=== PATIENT | male | born 1960 | race Caucasian/White ===

== ENCOUNTER → 2018-07-12 | Outpatient (CLI) | payer OTHER ==
[~2018-07-12] MED LIST: AZULFIDINE500 MG/TAB PO; CELEXA 20MG20 MG/TAB PO; FLEXERIL 1010 MG/TAB PO; GLUCOPHAGE850 MG/TAB PO; MEDROL 4MG DOSPA4 MG PO; MEVACOR 20M20 MG/TAB PO; NORCO 325 MG-51 TAB PO; NORCO 325 MG-7.1 TAB PO; PLAQUENIL 200M200 MG PO; TOPROL XL 25MG25 MG PO; ULTRAM 50MG TAB50 MG PO
== END ==
LOC: COL.RAD 07:30
DX: M48.061 Spinal stenosis, lumbar region without neurogenic claudication (principal); G54.9 Nerve root and plexus disorder, unspecified

== ENCOUNTER → 2018-07-12 | Outpatient (CLI) | payer OTHER | LOC: COL.RAD 11:22 | DX: M51.16 Intervertebral disc disorders with radiculopathy, lumbar region (principal); M47.26 Other spondylosis with radiculopathy, lumbar region; M41.86 Other forms of scoliosis, lumbar region ==

== ENCOUNTER → 2018-07-24 | Outpatient (CLI) | payer OTHER | LOC: MHCPAIN 14:12 | DX: G89.29 Other chronic pain (principal); M47.817 Spondylosis without myelopathy or radiculopathy, lumbosacral region; M54.16 Radiculopathy, lumbar region; M53.3 Sacrococcygeal disorders, not elsewhere classified | CPT/HCPCS: G0463; J1100; J2250; J3010; Q9967 ==

== ENCOUNTER → 2018-08-08 | Outpatient (CLI) | payer OTHER | LOC: MHCPAIN 15:07 | DX: G89.29 Other chronic pain (principal); M47.817 Spondylosis without myelopathy or radiculopathy, lumbosacral region; M54.16 Radiculopathy, lumbar region; M53.3 Sacrococcygeal disorders, not elsewhere classified; M48.061 Spinal stenosis, lumbar region without neurogenic claudication | CPT/HCPCS: G0463 ==

== ENCOUNTER 2024-02-13 10:24 | Day surgery (SDC) | payer MEDICARE ==
[~2024-02-13] VITALS: Ht 167.7 cm; Wt 92.0 kg
[2024-02-13] VITALS (7 sets, daily range): BP systolic 141–165; BP diastolic 82–98; PULSE 61–64; TEMP 97
[2024-02-13] MEDS ORDERED: 1/2 NS 1,000 ML IV SCH (11:30)
[2024-02-13] MEDS ORDERED: DIABETA 5MG5 MG/TAB PO (11:43)
[2024-02-13] MEDS ORDERED: TOPROL XL 50MG50 MG PO (11:44)
[2024-02-13] MEDS ORDERED: LYRICA200 MG PO (11:44)
[2024-02-13] MEDS ORDERED: GLUCOPHAGE500 MG/TAB PO (11:45)
[2024-02-13 11:46] LABS: INR 1.3 (0.8-3.0); PROTHROMBIN TIME 14.1 SECONDS (9.7-12.8)
[2024-02-13] MEDS ORDERED: LIPITOR 40MG TA40 MG PO (11:46)
[2024-02-13] MEDS ORDERED: ASPIRIN E.C. 8181 MG PO (11:46)
[2024-02-13] MEDS ORDERED: NITRO-DUR0.2 MG/PAT TD (11:47)
[2024-02-13 11:49] LABS: PARTIAL THROMBOPLASTIN TIME 32.5 SECONDS (26.0-37.0)
[2024-02-13] MEDS ORDERED: NOVOLIN 70100 UNIT/2 SQ (11:53)
[2024-02-13 11:55] LABS: CALCIUM 9.4 mg/dL (8.4-10.2); CREATININE, serum 0.88 mg/dL (0.72-1.25)
[2024-02-13 12:09] LABS: HEMATOCRIT 38.1 % (42.0-52.0); HEMOGLOBIN 12.9 g/dl (13.5-18.0); MEAN CELL VOLUME 84 fl (80.0-100.0); MEAN CORPUSCULAR HEMOGLOBIN 29 pg (27-31); MEAN CORPUSCULAR HGB CONC 34 g/dl (33.0-37.0); MEAN PLATELET VOLUME 11.8 fl (7.4-10.4); PLATELET COUNT 71 K/mm3 (130-400); RED BLOOD COUNT 4.53 M/mm3 (4.20-5.60); REDCELL DISTRIBUTION WIDTH-CV 13.6 % (11.5-14.5)
--- NOTE | 2024-02-13 12:52 | NUR ---
SEE MERGE FOR PROCEDURE DOCUMENTATION
[2024-02-13] MEDS ORDERED: Midazolam 2 MG/2 ML VIAL IV SCH (13:41)
[2024-02-13] MEDS ORDERED: fentaNYL 50 MCG/ML 2 ML VIAL IV SCH (13:42)
[2024-02-13] MEDS ORDERED: Iohexol 350 - 100 ML VIAL INCOR ONE (13:43)
--- NOTE | 2024-02-13 14:00 | NUR ---
PT RETURNED FROM [facility] VIA BED WITH , STATES DR CHOI TALKED WITH HER. ANGIOSEAL DRESSING IS SOFT, CLEAN AND DRY. PT C/O NO PAIN OR SOB. CALL LIGHT IN REACH. HAS EYES CLOSED
--- NOTE | 2024-02-13 14:10 | NUR ---
PATIENT ALERT AND ORIENTED, DENIES PAIN AT THIS TIME. PT TRANSFERRED VIA SLIDE BOARD TO BED AND TRANSPORTED TO [facility]. SPOUSE BROUGHT TO BEDSIDE. VITAL SIGNS TAKEN ON ARRIVAL, VSS. GROIN SITE CDI. BED IN LOWEST POSITION, CALL LIGHT WITHIN REACH, X3 BEDRAILS IN PLACE. PLAN OF CARE REVIEWED WITH PT AND SPOUSE. TRANSFER OF CARE TO [facility]
--- NOTE | 2024-02-13 14:38 | NUR ---
PT CON'T TO REST SUPINE, HAS NO C/O, IV FLUIDS AT 100CC/HR, IN ROOM
--- NOTE | 2024-02-13 15:00 | NUR ---
PT USED URINAL WHILE SUPINE, 300CC YELLOW URINE OUT. DR CHOI INTO SEE PT AND , TRANSFER TO [facility] ARRANGED WITH EMS BY [employer].
--- NOTE | 2024-02-13 15:30 | NUR ---
ACCUCHECK DONE, 133, PT HAVING NO C/O AT THIS TIME. EMS HERE AT 1535 FOR TRANSFER, VERBAL AND WRITTEN REPORT GIVEN, RIGHT GROIN REMAINS SOFT, AND CLEAN, REVIEWED PROCEDURE AND TRANSFER WITH PT AND . REPORT CALLED TO LIZ SPOKE WITH BECKY MATA AT 1550
== END 2024-02-13 16:01 | disposition short-term general hospital (02) ==
LOC: COL.CAR 10:24
PROVIDERS: Internal Medicine Cardiovascular Disease
DX: I25.700 Atherosclerosis of coronary artery bypass graft(s), unspecified, with unstable angina pectoris (principal); I25.82 Chronic total occlusion of coronary artery; I10 Essential (primary) hypertension; E78.5 Hyperlipidemia, unspecified; Z79.82 Long term (current) use of aspirin; Z79.899 Other long term (current) drug therapy
CPT/HCPCS: C1760; C1769; C1894; J1644; J2250; J3010; Q9967